=== PATIENT | female | born 1990 | race Caucasian/White ===

== ENCOUNTER 2017-02-02 12:39 | Emergency (ER) | payer MEDICAID ==
--- NOTE | ~2017-02-02 | ER ---
PATIENT'S NAME: SILVIA MURILLO [facility] AGE: 26 Y [address] ROOM: [place] [address] LOCATION: [facility] ADMIT DATE: 02/02/2017 ER/Outpatient Report DISCHARGE DATE: 02/02/2017 FAMILY PHYSICIAN: PHYSICIAN, NO ATTENDING PHYSICIAN: Jorge Luis Wright TIME SEEN: 1320 hours. CHIEF COMPLAINT: Tooth pain. HISTORY OF PRESENT ILLNESS: The patient is a 26-year-old female who presents complaining of a severe toothache. The pain is involved with a right lower back molar. The patient states she has had a large defect in that tooth for quite some time. The patient is on Medicaid and has been unable to get in to see a dentist. Pain management has been with ibuprofen which has not helped. ALLERGIES: NONE. HOME MEDICATIONS: 1. Ibuprofen. 2. Chantix. MEDICAL HISTORY: History of substance abuse, meth. She said she has been clean for about 4 years. SURGERIES: She has had 3 C sections, 2 D and C's, and cholecystectomy. SOCIAL HISTORY: She is a smoker, but been trying to reduce it, stopped using drugs 4 years ago. She is a single mom. Apparently, just recently moved to [place]. REVIEW OF SYSTEMS: GENERAL: No fever or chills. HEAD AND EENT: Dental pain with history of a large defect in the right lower back molar. Denied any neck pain. Does get some referred pain to her right ear. OBJECTIVE FINDINGS: VITAL SIGNS: Blood pressure 122/74, temperature is 97.6, her pulse was 85, PATIENT'S NAME: SILVIA MURILLO [facility] AGE: 26 Y [address] ROOM: [place] [address] LOCATION: [facility] ADMIT DATE: 02/02/2017 ER/Outpatient Report DISCHARGE DATE: 02/02/2017 FAMILY PHYSICIAN: PHYSICIAN, RAJESH ATTENDING PHYSICIAN: Jorge Luis Wright and O2 saturation is 97% on room air. GENERAL APPEARANCE: She is alert and oriented, well nourished, somewhat teary eyed. HEENT: Ears: Both TMs intact. No signs of any infection. Mouth: Oral membranes moist. Right lower back molar has a large defect in it. Other teeth actually look quite well. Slightly tender on the right side of her face. No apparent swelling. ASSESSMENT: Toothache with possible abscessed tooth, right lower back molar. PLAN: Recommend she continue ibuprofen 800 mg 3 times a day. We did give her some [place] 5/325 one or two every 4-6 hours, 12 of them prescribed. We give her a copy of the dentist who would accept people on Medicaid. My suggestion was that she call her dentist in [place] and go back there tomorrow for further treatment. KRISTIN LAY FOR DO HARESH LEIJA/jay /[id number] d: 02/02/172009 t: 02/08/17 0914, OUTPATIENT REPORT
== END 2017-02-02 13:36 ==
LOC: GMED 12:39
DX: K08.89 Other specified disorders of teeth and supporting structures (principal); F17.210 Nicotine dependence, cigarettes, uncomplicated; Z90.49 Acquired absence of other specified parts of digestive tract